=== PATIENT | female | born 1995 | race Caucasian/White ===

== ENCOUNTER 2016-09-12 12:16 | Emergency (ER) | payer SELFPAY ==
[~2016-09-12] VITALS: Ht 172.7 cm; Wt 88.0 kg
[2016-09-12] MEDS ORDERED: MORPHINE SULFATE 10 MG/ML CPJ IM ONE (13:30)
[2016-09-12] MEDS ORDERED: TETANUS, DIPHTHERIA, PERTUSSIS VAC/PF 0.5ML (>7YR OLD) IM ONE (13:30)
[2016-09-12] MEDS ORDERED: ONDANSETRON 4MG ODT PO ONE (13:30)
[2016-09-12] MEDS ORDERED: MORPHINE SULFATE 4 MG/ML CPJ (NOT FOR IM USE) IV STA (14:27)
[2016-09-12] MEDS ORDERED: BACITRACIN ZINC OINT UDPKT TOP ONE (14:30)
[2016-09-12] MEDS ORDERED: LIDOCAINE HCL 1% 20ML VIAL (Pyxis) INJ INFIL ONE (14:45)
[2016-09-12 15:56] VITALS: BP 108/66
== END 2016-09-12 15:58 | disposition home or self-care (01) ==
LOC: ER 13:15
DX: S61.217A Laceration without foreign body of left little finger without damage to nail, initial encounter (principal); S61.215A Laceration without foreign body of left ring finger without damage to nail, initial encounter; W45.8XXA Other foreign body or object entering through skin, initial encounter; Y93.89 Activity, other specified; Y92.89 Other specified places as the place of occurrence of the external cause; Y99.8 Other external cause status
CPT/HCPCS: 12001; 90471; 90715; 99283; J2270; J3490; Q0162; X7700; Z7610